=== PATIENT | female | born 1975 | race Caucasian/White ===

== ENCOUNTER 2017-12-30 13:51 | Emergency (ER) | payer OTHER ==
[~2017-12-30] VITALS: Ht 154.9 cm; Wt 90.3 kg
[2017-12-30 13:53] VITALS: BP 152/90; Ht 154.9 cm; Wt 90.3 kg
== END 2017-12-30 14:10 | disposition left against medical advice (07) ==
LOC: ED 13:51
DX: Z53.21 Procedure and treatment not carried out due to patient leaving prior to being seen by health care provider (principal)